=== PATIENT | female | born 1945 | race Caucasian/White ===

== ENCOUNTER 2019-10-09 15:50 | Inpatient (IN) | payer OTHER ==
[~2019-10-09] VITALS: Ht 165.1 cm; Wt 61.2 kg
[~2019-10-09 15:50] MED LIST: BAYER BACK & B1 EACH PO; MELATONIN3 MG PO; MULTIVITAMINS1 EAC6 PO
[2019-10-09 15:58] VITALS: BP 136/69
[2019-10-09 18:46] LABS: HEMATOCRIT 26.5 % (37.0-47.0); MCHC 34.2 g/dL (28.0-37.0); MCV 111.1 fL (80.0-100.0); PLATELET COUNT 170 thou/uL (150-400); RBC 2.38 mil/uL (4.20-5.00); RDW 18.6 % (10.5-14.5); WBC 7.9 thou/uL (4.0-11.0)
[2019-10-09 18:58] LABS: ANION GAP 9 mmol/L (7-16); BUN 12 mg/dL (7-18); CHLORIDE 103 mmol/L (98-107); CO2 29 mmol/L (21-32); CREATININE 1.1 mg/dL (0.6-1.0); GLUCOSE 98 mg/dL (74-106); LIPASE 194 U/L (73-393); POTASSIUM 3.8 mmol/L (3.5-5.1); SODIUM 141 mmol/L (136-145); TROPONIN-I <0.06 ng/mL (<0.06)
[2019-10-09 19:00] LABS: APTT 27.2 Seconds (24.5-32.8); PROTIME 10.3 Seconds (9.3-11.4)
[2019-10-09 19:04] LABS: CALCIUM 9.3 mg/dL (8.5-10.1)
[2019-10-09 19:27] LABS: ABSOLUTE NEUTROPHILS 4.2 thou/uL (1.4-8.2); NUCLEATED RBCS 9 /100WBC
[2019-10-09 19:29] LABS: ANISOCYTOSIS 2+; MACROCYTES 3+; PLATELET ESTIMATE NORMAL; POLYCHROMASIA 1+
[2019-10-09 23:01] VITALS: BP 139/89
--- NOTE | 2019-10-09 23:02 | NUR ---
HAND OFF TOOL PRINTED TO FLOOR
[2019-10-10 00:15] VITALS: BP 135/63
--- NOTE | 2019-10-10 03:10 | NUR ---
PATIENT ADMITTED FROM ED AT MIDNIGHT. PATIENT IS HERE FOR DYSPNEA ON EXCERTION, DIZZINESS AND ANEMIA. PATIENT IS ALERT AND ORIENTED X 4, VITAL SIGNS ARE STABLE, DENIES PAIN. PATIENT WAS UP TO THE BATHROOM IN THE ER WITH MINIMAL ASSISTANCE. ASSESSMENT CHARTED W ASSIST FROM ANIL ENCISO. WHEN AMBULATING WITH THIS NURSE, PATIENT TOLERATED WELL WHEN AMBULATING TO TOILET. PATIENT IS NPO AFTER MIDNIGHT. GIVEN MRI QUESTIONARE; PATIENT WILL "WORK ON IT" BECAUSE SHE IS TIRED. R AC IV IS PATENT AND INFUSING NS AT 125 MLS/HR. FALL EDUCATION PROVIDED; PATIENT CALLS OUT APPROPRIATELY. WILL CONTINUE TO MONITOR TONIGHT AND FOLLOW ORDERS
[2019-10-10 04:50] VITALS: BP 133/61
[2019-10-10 06:11] LABS: RDW 18.6 % (10.5-14.5)
[2019-10-10 06:16] LABS: HEMATOCRIT 23.8 % (37.0-47.0); HEMOGLOBIN 8.1 gm/dL (12.0-15.0); MCH 37.9 pg (26.0-34.0); MCHC 34.1 g/dL (28.0-37.0); RBC 2.15 mil/uL (4.20-5.00); WBC 6.6 thou/uL (4.0-11.0)
[2019-10-10 06:32] LABS: ABSOLUTE RETIC COUNT 0.1358 10^6/uL; OBSERVED RETIC COUNT 2.52 % (0.6-2.6)
[2019-10-10 06:34] LABS: % SATURATION 43 % (20-39); ALBUMIN 2.9 g/dL (3.4-5.0); CALCIUM 8.9 mg/dL (8.5-10.1); CREATININE 0.9 mg/dL (0.6-1.0); IRON 118 ug/dL (50-170); POTASSIUM 3.5 mmol/L (3.5-5.1); TIBC 275 ug/dL (250-450); TOTAL BILIRUBIN 0.2 mg/dL (<0.1-1.0); TOTAL PROTEIN 6.6 g/dL (6.4-8.2)
[2019-10-10 07:20] LABS: FOLIC ACID 4.4 ng/mL (8.6-58.9)
--- NOTE | 2019-10-10 07:54 | EKG ---
[place] [address] [address] [place] [address] ELECTROCARDIOGRAM REPORT Name: CM LOOMIS Room #: 438-P ADM IN M.R.#: [id number] Admission: 10/09/19 Attend Phys: Zafar Beverly MD Discharge: Date of : 45 Report #: [id number] THIS REPORT FOR: //name// [facility] ED Test Date: 2019-10-09 Test Time: 16:01:44 Pat Name: CM LOOMIS Department: Room: [facility] Gender: F Second Shift Supervisor: RACHEL : 1945 Requested By: Hung Siddiqui Order Number: [id number] MD: Vidal Gómez Measurements Intervals [place] Rate: 94 P: TX: QRS: 78 QRSD: 89 T: 10 QT: 423 QTc: 530 Interpretive Statements Sinus rhythm Low voltage, extremity and precordial leads Baseline wander in lead(s) V2,V6 No previous ECG available for comparison Electronically Signed On 10-10-2019 7:53:30 V BELT BUILDER by Vidal Gómez [email or web address] <ELECTRONICALLY SIGNED> By: Vidal Gómez MD 10/10/19 0753 00 00 Vidal Gómez MD /ROSLYN
[2019-10-10 08:04] VITALS: BP 122/65
[2019-10-10 16:46] VITALS: BP 135/56
--- NOTE | 2019-10-10 17:15 | NUR ---
INITIAL ASSESSMENT: Pt evaluated for d/c planning needs. Reviewed chart and spoke with nurse and pt. Pt is alert and oriented. Pt states she lives in [facility] and has steps at home. Pt said she has no DME and has not had home health in the past. Pt has 2 dogs at home. Dtr lives in [place]. Brother lives in [place]. Pt said she does not think she will be able to return home on d/c from hospital. Will remain available to assist as needed.
--- NOTE | 2019-10-10 19:39 | NUR ---
PT A&OX4. IV INTACT IN R AC. AMBULATES WITH STANDBY ASSIST. PT WITH FLAT AFFECT SIGNS WITH DEPRESSED MOOD. NPO FOR EGD AND COLONOSCOPY 10/11/19. DRINKING BOWEL PREP MIRLAX AT THIS TIME. WILL CONT POC.
[2019-10-10 20:50] VITALS: BP 143/77
[2019-10-11 03:05] VITALS: BP 121/53
--- NOTE | 2019-10-11 05:09 | NUR ---
ASSUMED PATIENT CARE AT APPROX. 1999. ASSESSMENT CHARTED. MEDICATIONS GIVEN PER DEC. PATIENT IS A&OX4, DENIES PAIN. PATIENT IS TAKING A MIRALAX BOWEL PREP AND GOING FREQUENTLY. HER STOOLS ARE WATERY. PATIENT APPEARS TO HAVE SLIGHT BLEEDING IN RECTUM DUE TO SO MUCH WIPING. PATIENT IS NPO AFTER MIDNIGHT. TO GET A MRI OF SPINE AND COLONOSCOPY TODAY 10/11. PATIENT ACCIDENTALLY PULLED HER IV OUT ON R AC. THIS NURSE ATTEMPTED TO REINSERT AN IV IN R FOREARM WITH NO SUCCESS. PATIENT SEEMS IN BETTER SPIRITS THAN BEGINNING OF SHIFT. PER CM NOTES, PATIENT WILL PROBABLY NOT RETURN HOME AFTER THIS HOSPITALIZATION. PATIENT IS STEADY AND TOLERATES GETTING UP TO THE BEDSIDE COMMODE WELL. ENCOURAGED TO DANGLE TO PREVENT DIZZINESS. WILL CONTINUE TO MONITOR AND FOLLOW CARE
--- NOTE | 2019-10-11 07:32 | NUR ---
A AGREE ON THE CHARTING DONE BY NU HAWKINS RN.
[2019-10-11 10:20] VITALS: BP 120/61
--- NOTE | 2019-10-11 12:15 | NUR ---
Following for d/c planning needs. Spoke with pt and pt's daughter. Plan is for pt to go to daughter's house on d/c from hospital. Daughter asking to speak with physician re: prognosis. Message passed on to Dr Beverly.
[2019-10-11 15:07] LABS: CA 27.29 1772.3 U/mL (0.0-38.6)
[2019-10-11 15:34] VITALS: BP 128/58
--- NOTE | 2019-10-11 18:36 | NUR ---
PT A&OX4. IV INTACT IN R WRIST. AMBULATES SELF IN ROOM. COMPLETED EGD/COLONOSCOPY THIS AM. PT INFORMED HER DAUGHTER THIS AM OF THE MRI FINDINGS. DAUGHTER VERY UPSET. DR. STERN ORDERED BIOPSY AND US OF THE L BREAST BUT UNABLE TO HAVE DONE INPATIENT. DR. GONZALEZ NOTIFIED AND SPOKE TO [place]. NO NEW ORDERS. WILL CONT POC.
[2019-10-11 19:16] VITALS: BP 120/53
[2019-10-12 03:30] VITALS: BP 134/87
--- NOTE | 2019-10-12 04:47 | NUR ---
ASSUMED CARE OF PT @1900 PT ASSESSED AT START OF SHIFT A&OX4 DTR AT BEDSIDE FOR THE NIGHT UP TO THE BSC. CALL LIGHT WITHIN REACH. INFORMED PT TO CALL INCASE OF DIZZINESS. DENIES N/V WILL CONT WITH POC TILL EOS
[2019-10-12 07:34] VITALS: BP 124/57
[2019-10-12 08:11] LABS: CEA 40.1 ng/mL (0.0-4.7)
[2019-10-12] MEDS ORDERED: MIRALAX119 GM PO (08:52)
[2019-10-12] MEDS ORDERED: NORCO 5-325 TA1 EAC1 PO (08:52)
[2019-10-12] MEDS ORDERED: SYNTHROID100 MC1 PO (08:52)
[2019-10-12] MEDS ORDERED: PROTONIX40 M2 PO (08:52)
[2019-10-12 09:07] VITALS: BP 124/57
--- NOTE | 2019-10-12 10:33 | NUR ---
ASSUMED CARE OF THE PT AT 0700. PT HAS SOME QUESTIONS ABOUT FOLLOWUP CARE AFTER D/C, DOCTOR SPOKE WITH HER. PT IS A&OX4. PTS IV WAS DRY AND INTACT AND WAS REMOVED BEFORE PT DISCHARGED. PT WAS GIVEN INFORMATION ON MEDICATIONS AND FOLLOWUP CARE. PTS LUNGS WERE CLEAR AND PULSES STRONG. NO C/O PAIN. PT SIGNED DISCHARGE PAPERWORK AND WAS DISCAHRGED HOME.
--- NOTE | 2019-10-12 16:06 | PATH ---
[facility] [address] [address] PATHOLOGY RPT PROCEDURE Name: SHY LOOMIS Lizette Room #: 438-P DIS IN M.R.#: [id number] Admission: 10/09/19 Date of : 45 Discharge: 10/12/19 Report #: [id number] Path Case #: [id number] [facility] Accession Number: [id number] . 01 Material submitted: . PART A: stomach - GASTRIC BIOPSY R/O H. PYLORI PART B: esophagus - ESOPHAGEAL BIOPSY R/O CHAUHAN'S . 01 Clinical history: . Pre-OP DX: Melena, anemia, weight loss, abnormal CT Post-OP DX: Gastric ulcer . 02 Diagnosis: A. Gastric mucosa, gastric rule out H. pylori, endoscopic biopsy: - Mild chronic inflammation. - Negative for intestinal metaplasia or atrophy. - Negative for Helicobacter pylori (properly controlled immunohistochemical stain performed). . B. Gastroesophageal mucosa, esophageal rule out Chauhan's, endoscopic biopsy: - Gastric-type mucosa with mild chronic inflammation. - Squamous mucosa with mild esophagitis. - Negative for intestinal metaplasia or dysplasia. . (IUV:cisco consultant; 10/12/2019) MBR 10/12/2019 1249 Local . 02 Electronically signed: . Gladis Wolfe MD, Pathologist NPI- [id number] . 01 Gross description: . A. Received in formalin labeled "HardikManinderel, gastric BX, rule out H. pylori," are 5 segments of perales soft tissue measuring 1.1 x 0.6 x 0.2 cm in aggregate dimensions and ranging from 0.5 to 0.7 cm in maximum dimension. The specimen is submitted entirely in cassette A1. . B. Received in formalin labeled "Shy Loomis, esophageal BX, rule out Chauhan's," are 2 segments of perales soft tissue measuring 0.2 x 0.1 x 0.1 cm in aggregate dimensions and ranging from 0.3 to 0.4 cm in maximum dimension. The specimen is submitted entirely in cassette B1. (TSD; 10/11/2019) TOB/TOB 10/11/2019 1730 Local . 02 Pathologist provided ICD-10: K29.50, K20.9 [place] [address] PATHOLOGY RPT PROCEDURE Name: SHY LOOMIS W Room #: 438-P DIS IN M.R.#: [id number] Admission: 10/09/19 Date of : 45 Discharge: 10/12/19 Report #: [id number] Path Case #: [id number] . 02 CPT . [id number], [id number], [id number] Specimen Comment: A courtesy copy of this report has been sent to [phone], [phone] Specimen Comment: [phone], Specimen Comment: Report sent to ,DR JOYNER / DR BRAVO Performed at: [address] [facility], [place] [id number] MD Anton Ariza MD Phone: [phone] Performed at: [address] [facility] [id number] MD Gladis Wolfe MD Phone: [phone]
== END 2019-10-12 10:00 | disposition home or self-care (01) | DRG 597 ==
LOC: ER 15:50 → EROBS 22:35 → 4S 22:35 → ENTRNSPT 10-12 10:03 → EDTRNSPTSTS 10-12 10:08
PROVIDERS: Emergency Medicine; Internal Medicine Hematology & Oncology; Nurse Practitioner Family; ADMIT Hospitalist
PROC: 0DB68ZX Excision of Stomach, Via Natural or Artificial Opening Endoscopic, Diagnostic (ICD-10-PCS; principal; 2019-10-11)
PROC: 0DJD8ZZ Inspection of Lower Intestinal Tract, Via Natural or Artificial Opening Endoscopic (ICD-10-PCS; principal; 2019-10-11)
PROC: 0DB58ZX Excision of Esophagus, Via Natural or Artificial Opening Endoscopic, Diagnostic (ICD-10-PCS; principal; 2019-10-11)
DX: C50.919 Malignant neoplasm of unspecified site of unspecified female breast (principal); K25.4 Chronic or unspecified gastric ulcer with hemorrhage; K29.81 Duodenitis with bleeding; H81.90 Unspecified disorder of vestibular function, unspecified ear; F17.210 Nicotine dependence, cigarettes, uncomplicated; K76.9 Liver disease, unspecified; F10.10 Alcohol abuse, uncomplicated; D53.9 Nutritional anemia, unspecified; G62.9 Polyneuropathy, unspecified; Z60.2 Problems related to living alone; G47.00 Insomnia, unspecified; R63.0 Anorexia; D50.0 Iron deficiency anemia secondary to blood loss (chronic); K22.70 Barrett's esophagus without dysplasia; Y90.9 Presence of alcohol in blood, level not specified; E03.9 Hypothyroidism, unspecified; Z85.3 Personal history of malignant neoplasm of breast; Z92.21 Personal history of antineoplastic chemotherapy; Z92.3 Personal history of irradiation; Z71.6 Tobacco abuse counseling; Z71.41 Alcohol abuse counseling and surveillance of alcoholic; Z79.82 Long term (current) use of aspirin; Z79.899 Other long term (current) drug therapy; Z90.710 Acquired absence of both cervix and uterus; Z79.1 Long term (current) use of non-steroidal anti-inflammatories (NSAID); Z68.22 Body mass index [BMI] 22.0-22.9, adult
CPT/HCPCS: 10100; 10195; 62110; 62900